=== PATIENT | male | born 1950 | race Caucasian/White ===

== ENCOUNTER → 2017-10-11 | Outpatient (CLI) | payer OTHER ==
[~2017-10-11] MED LIST: IOPAMIDOL (ISOVUE-300) 100 ML BTL ONE
== END ==
LOC: FIMAGING 08:23
PROVIDERS: ATTEND Internal Medicine
DX: N28.89 Other specified disorders of kidney and ureter (principal); N20.0 Calculus of kidney; N28.1 Cyst of kidney, acquired
CPT/HCPCS: 74178; Q9967

== ENCOUNTER 2018-01-18 14:12 | Emergency (ER) | payer OTHER ==
--- NOTE | 2018-01-18 14:49 | EDPHY ---
H & P Time Seen by Provider: 01/18/18 14:21 HPI/ROS: CHIEF COMPLAINT: Suprapubic pain HISTORY OF PRESENT ILLNESS: The patient is a 59-year-old male presents emergency department with severe suprapubic pain. The patient was diagnosed with kidney stones recently. He had a CT scan which showed for kidney stones in the right and 1 kidney stone on the left. Yesterday he underwent outpatient procedure by Dr. Bob end the left stent was placed. Patient urinated after procedure went home. However, since that time he has had increased suprapubic pain. It is much more uncomfortable when he urinates. He has attempted to decrease his fluid intake because he does not want to urinate. The patient denies fevers or chills. No nausea or vomiting. REVIEW OF SYSTEMS: My complete review of systems is negative except as mentioned in the HPI. Past Medical/Surgical History: Includes kidney stone Smoking Status: Never smoked Physical Exam: Vitals noted GENERAL: Well-appearing, in no acute distress, alert. HEENT: Eyes normal to inspection, normal pharynx, no signs of dehydration. NECK: [No thyromegaly, no lymphadenopathy, supple. RESPIRATORY: Clear to auscultation bilaterally, no rales, rhonchi or wheezing. CVS: Regular rate and rhythm, no rubs, murmurs, or gallops. ABDOMEN: Soft, suprapubic tenderness to palpation with no rebound or guarding, nondistended, no organomegaly. BACK: Normal to inspection, no CVA tenderness. SKIN: Normal color, no rash, warm, dry. No pallor. EXTREMITIES: No pedal edema, no calf tenderness, no Homans sign or cords, no joint swelling. NEURO/PSYCH: Alert and oriented, normal mood and affect, normal motor sensory exam. Constitutional: Initial Vital Signs Temperature (C) 36.9 C 01/18/18 14:16 Heart Rate 81 01/18/18 14:16 Respiratory Rate 16 01/18/18 14:16 Blood Pressure 137/83 H 01/18/18 14:16 O2 Sat (%) 98 01/18/18 14:16 O2 Delivery Mode Room Air Allergies/Adverse Reactions: No Known Allergies Allergy (Verified 01/18/18 14:13) Home Medications: Medication Instructions Recorded Flomax 01/18/18 Oxybutynin Chloride 01/18/18 Oxycodone-Acetaminophen 5-325 01/18/18 Phenazopyridine HCl 01/18/18 Medical Decision Making - Diagnostics Imaging Results: Imaging Impressions Abdomen X-Ray 01/18/18 14:45 Impression: 1. Bilateral nephrolithiasis. Right renal calculus may be at the ureteropelvic junction. 2. Left ureteral stent in place; however, the upstream pigtail is only partially formed. Procedures: Bedside and bladder ultrasound Indication: Suprapubic discomfort Patient consented to the procedure. Patient was noted to have a moderately full bladder. There is no visible sludge or foreign body. ED Course/Re-evaluation: In the emergency department discussed possible etiologies with the patient. I answered all his questions. Bedside ultrasound was performed. Patient had a moderate amount of urine. No visible stent. I discussed the case with Dr. Bob. She recommended a Fernandez be placed and KUB ordered. Patient's chemistry is notable for an elevated creatinine 1.8. His previous creatinine on 10/14/2017 was 1.0. KUB: Please refer the dictated report. Bilateral nephrolithiasis. The left ureteral stent is in place. However The upstream pigtail is only partially formed. I discussed the case with Dr. Bob. Discussed elevated creatinine and the findings from the KUB. She felt comfortable having the patient discharged home. He was instructed drink fluid. Catheter will be kept in place. The patient was given warnings prior to leaving. He will follow up next week. Differential Diagnosis: My differential includes but is not limited to kidney stone, stent pain, perforation, urinary tract infection, pyelonephritis, bacteremia, sepsis, bladder spasm - Data Points Laboratory Results: Laboratory Results 01/18/18 15:05 01/18/18 15:05 01/18/18 01/18/18 01/18/18 15:50 15:05 15:05 WBC 9.58 10^3/uL H 10^3/uL (3.80-9.50) RBC 5.21 10^6/uL 10^6/uL (4.40-6.38) Hgb 16.8 g/dL g/dL (13.7-17.5) Hct 47.5 % % (40.0-51.0) MCV 91.2 fL fL (81.5-99.8) MCH 32.2 pg pg (27.9-34.1) MCHC 35.4 g/dL g/dL (32.4-36.7) RDW 12.4 % % (11.5-15.2) Plt Count 204 10^3/uL 10^3/uL (150-400) MPV 10.0 fL fL (8.7-11.7) Neut % (Auto) 78.8 % H % (39.3-74.2) Lymph % (Auto) 11.2 % L % (15.0-45.0) Gilliam % (Auto) 9.0 % % (4.5-13.0) Eos % (Auto) 0.4 % L % (0.6-7.6) Baso % (Auto) 0.4 % % (0.3-1.7) Nucleat RBC Rel Count 0.0 % % (0.0-0.2) Absolute Neuts (auto) 7.55 10^3/uL H 10^3/uL (1.70-6.50) Absolute Lymphs (auto) 1.07 10^3/uL 10^3/uL (1.00-3.00) Absolute Monos (auto) 0.86 10^3/uL H 10^3/uL (0.30-0.80) Absolute Eos (auto) 0.04 10^3/uL 10^3/uL (0.03-0.40) Absolute Basos (auto) 0.04 10^3/uL 10^3/uL (0.02-0.10) Absolute Nucleated RBC 0.00 10^3/uL 10^3/uL (0-0.01) Immature Gran % 0.2 % % (0.0-1.1) Immature Gran # 0.02 10^3/uL 10^3/uL (0.00-0.10) Sodium 141 mEq/L mEq/L (135-145) Potassium 4.1 mEq/L mEq/L (3.3-5.0) Chloride 108 mEq/L mEq/L (97-110) Carbon Dioxide 24 mEq/l mEq/l (22-31) Anion Gap 9 mEq/L mEq/L (8-16) BUN 26 mg/dL H mg/dL (7-23) Creatinine 1.8 mg/dL H mg/dL (0.7-1.3) Estimated GFR 38 Glucose 91 mg/dL mg/dL (70-100) Calcium 9.4 mg/dL mg/dL (8.5-10.4) Urine Color MINE Urine Appearance HAZY Urine pH 5.0 (5.0-7.5) Ur Specific [employer] 1.009 (1.002-1.030) Urine Protein 1+ H (NEGATIVE) Urine Ketones NEGATIVE (NEGATIVE) Urine Blood 3+ H (NEGATIVE) Urine Nitrate POS H (NEGATIVE) Urine Bilirubin NEGATIVE (NEGATIVE) Urine Urobilinogen 4.0 EU H EU (0.2-1.0) Ur Leukocyte Esterase NEGATIVE (NEGATIVE) Urine RBC 50-182 /hpf H /hpf (0-3) Urine WBC 15-25 /hpf H /hpf (0-3) Ur Epithelial Cells NONE SEEN /lpf /lpf (NONE-1+) Urine Bacteria TRACE /hpf H /hpf (NONE SEEN) Urine Mucus TRACE /lpf /lpf (NONE-1+) Urine Glucose NEGATIVE (NEGATIVE) Medications Given: Discontinued Medications Belladonna Alkaloids/Opium (B & O) 1 each VT EDNOW ONE Stop: 01/18/18 14:57 Last Admin: 01/18/18 15:26 Dose: 1 each Fentanyl (Sublimaze) 100 mcg IVP EDNOW ONE Stop: 01/18/18 14:51 Last Admin: 01/18/18 15:23 Dose: 100 mcg Sodium Chloride (Ns) 1,000 mls @ 0 mls/hr IV EDNOW ONE; Wide Open PRN Reason: Protocol Stop: 01/18/18 14:51 Last Admin: 01/18/18 15:23 Dose: 1,000 mls Lidocaine (Uroject Lidocaine 2% Jelly) 20 ml UR EDNOW ONE Stop: 01/18/18 15:28 Last Admin: 01/18/18 15:27 Dose: 20 ml Departure - Departure Disposition: Home, Routine, Self-Care Clinical Impression: Urinary retention, Renal insufficiency Abdominal pain Qualifiers: Abdominal location: lower abdomen, unspecified Qualified Code(s): R10.30 - Lower abdominal pain, unspecified Condition: Good Instructions: Fernandez Catheter Placement and Care (ED), Abdominal Pain (ED) Additional Instructions: Follow-up with Dr. Bob next week. Return to the emergency department increasing pain, Fernandez malfunction, fever, chills or any other concerns. Referrals: Lionel Cartagena MD [Primary Care Provider] - As per Instructions Roya Bob MD [Medical Doctor] - 2-3 days without fail
[2018-01-18] MEDS ORDERED: NS 1,000 ML IV ONE (14:50)
[2018-01-18] MEDS ORDERED: ONDANSETRON 4 MG/2 ML VIAL IVP ONE (14:50)
[2018-01-18] MEDS ORDERED: fentaNYL 100 MCG/2 ML INJ IVP ONE (14:50)
[2018-01-18] MEDS ORDERED: OPIUM/BELLADONNA ALKALO SUPP PR ONE (14:56)
[2018-01-18] MEDS ORDERED: LIDOCAINE 2% JELLY 20 ML (UROJECT) ONE (15:18)
[2018-01-18 15:27] LABS: PLATELET COUNT 204 10^3/uL (150-400)
[2018-01-18] MEDS ORDERED: LIDOCAINE 2% JELLY 20 ML (UROJECT) UR ONE (15:27)
[2018-01-18 17:09] VITALS: BP 141/92
== END 2018-01-18 17:27 | disposition home or self-care (01) ==
DX: R10.30 Lower abdominal pain, unspecified (principal); R33.9 Retention of urine, unspecified; N28.9 Disorder of kidney and ureter, unspecified
CPT/HCPCS: 74018; 96374; 96375; 99284; J3010